=== PATIENT | female | born 1970 | race Caucasian/White ===

== ENCOUNTER 2019-12-20 00:37 | Outpatient (CLI) | payer OTHER, SELFPAY ==
[2019-12-20 18:11] LABS: SARS-CoV-2 RNA PCR Negative
== END 2019-12-20 00:38 | disposition home or self-care (01) ==
LOC: ANHCOVIDDT 00:37
PROVIDERS: Visit Provider Obstetrics & Gynecology Gynecology
DX: Z20.828 Contact with and (suspected) exposure to other viral communicable diseases (principal); Z01.812 Encounter for preprocedural laboratory examination
CPT/HCPCS: 87635; C9803; U0003

== ENCOUNTER 2019-12-20 09:18 | Outpatient (CLI) | payer OTHER, SELFPAY ==
--- NOTE | 2019-12-20 09:19 | ECG_ITS ---
Measurements Intervals [place] Rate: 55 P: 60 CT: 164 QRS: 64 QRSD: 97 T: 48 QT: 414 QTc: 397 Interpretive Statements SINUS BRADYCARDIA BASELINE ARTIFACT- I, II, III, AVR, AVL, AVF BORDERLINE ECG Electronically Signed On 12-20-2019 10:23:35 CDT by Nino Johnson D.O.
[2019-12-20 10:00] LABS: Blood Urea Nitrogen 23 mg/dL (7-17); Calcium 9.7 mg/dL (8.4-10.2); Carbon Dioxide 27 mmol/L (22-30); Chloride 102 mmol/L (98-107); Estimated Glomerular Filt Rate > 60; Glucose 111 mg/dL (65-105); Potassium 4.3 mmol/L (3.4-5.0); Sodium 135 mmol/L (137-145)
== END 2019-12-20 09:19 | disposition home or self-care (01) ==
LOC: ANHSURGERY 09:19
PROVIDERS: Anesthesiology; PCP Internal Medicine; Visit Provider Obstetrics & Gynecology Gynecology
DX: I10 Essential (primary) hypertension (principal); R94.31 Abnormal electrocardiogram [ECG] [EKG]
CPT/HCPCS: 36415; 80048; 87635; 93005; C9803; U0003

== ENCOUNTER 2019-12-22 03:18 | Day surgery (SDC) | payer OTHER, SELFPAY ==
[2019-12-18 17:10] VITALS: BMI 44.6
--- NOTE | ~2019-12-22 | XR_ITS ---
EXAMINATION: XR abdomen/kub 1V INDICATION: Lost partial IUD TECHNIQUE: Intraoperative supine views of the abdomen are obtained on four radiographs COMPARISON: None FINDINGS: Surgical instruments are noted in the pelvis. No additional radiopaque foreign body is iden tified. The bowel gas pattern is normal. IMPRESSION: 1. No partial IUD fragment visualized. Reviewed, dictated and finalized at location A.
[2019-12-22 08:11] VITALS: BP 141/83; PULSE 63; RESP 20; TEMP 36.6; O2SAT 98
[2019-12-22] MEDS: LACTATED RINGERS 1,000 ML 30 ML IV CONT (08:24)
--- NOTE | 2019-12-22 08:37 | WPDANESEPPF ---
Anes - Initial Pre Proc Eval Procedure: Operation Date: 12/22/19 09:30 Proposed Procedures p Hysteroscopy, Removal Of Intrauterine Device, Possible Laparoscopy - Bouchra Spencer MD Date/Time: 12/22/19 08:37 Surgeon: Bouchra Spencer MD Pre Op Diagnosis: Broken Intrauterine Device Patient Data Age: 49 Gender: F Height: 5 ft 6 in Weight: 121.3 kg Last Vital Signs Temp 36.6 C 12/22/19 08:11 Pulse 63 12/22/19 08:11 Resp 20 12/22/19 08:11 BP 141/83 H 12/22/19 08:11 Pulse Ox 98 12/22/19 08:11 Allergies Allergy/AdvReac Type Severity Reaction Status Date / Time hydrocodone [From Vicodin] Allergy Severe Swelling Verified 12/22/19 08:20 Home Medications Medication Instructions Recorded Confirmed Type hydrochlorothiazide 25 mg PO DAILY 12/18/19 12/22/19 History meloxicam 15 mg PO DAILY 12/18/19 12/22/19 History Patient hx anesthesia problems: post op nausea/vomiting Family hx anesthesia problems: none [facility] Past Medical History Medical History (Updated 12/22/19 @ 08:37 by Bulmaro Luz MD) Morbid obesity PRATEEK (obstructive sleep apnea) Anes - Eval Final PreProcedure Day of Procedure 12/22/19 08:37 Patient weight: morbidly obese Heart: regular rate and rhythm Lungs: clear to auscultation Airway: Mallampati scale class II Neurological: alert and oriented Last oral intake: >/= 8 hours ASA classification: III Emergent: no Anesthetic plan: proceed Anesthesia type and monitoring: general GIVS and standard monitoring Informed Consent: The patient's anesthetic plan and its attendant risks and benefits were discussed with the patient/family/POA. Questions were solicited and answers provided to the satisfaction of the patient/family/POA.
[2019-12-22] MEDS: SCOPOLAMINE 1.5 MG PATCH TRANSDERM (09:00)
--- NOTE | 2019-12-22 09:18 | PM.HPGS ---
History of Present Illness History of Present Illness Consent: Risks, benefits, and alternatives have been discussed and questions answered. Patient agrees to proceed with procedure. Chief complaint: Broken Intrauterine Device Narrative: Padmini Mccauley is a 49 year old female who had IUD removed in office. Only the vertical bar came out with the strings. The crossbar did not come out. U/s done and see 2 hypoechoic areas consistent with the ends of the crossbar. Discussed removal of remnant with hysteroscopy. Discussed that there is a rare chance this portion has perforated and XRay and laparoscopy may be needed. Risks of infection, bleeding, uterine perforation, injury to internal organs, and anesthesia reviewed. [facility] Past Medical History Medical History (Updated 12/22/19 @ 09:21 by Bouchra Spencer MD) delivery delivered Morbid obesity PRATEEK (obstructive sleep apnea) Surgical History Surgical History (Updated 12/22/19 @ 09:20 by Bouchra Spencer MD) H/O laparoscopy Meds Home Medications and Allergies Home Medications Medication Instructions Recorded Confirmed Type hydrochlorothiazide 25 mg PO DAILY 12/18/19 12/22/19 History meloxicam 15 mg PO DAILY 12/18/19 12/22/19 History Allergies Allergy/AdvReac Type Severity Reaction Status Date / Time hydrocodone [From Vicodin] Allergy Severe Swelling Verified 12/22/19 08:20 Vital Signs Vital Signs - 24 hr 12/22/19 08:11 Temperature 97.9 F Pulse Rate 63 Respiratory Rate 20 Blood Pressure 141/83 H Pulse Oximetry 98 Exam Const: General: healthy appearing and alert Orientation/consciousness: patient oriented x3 Resp: Effort & Inspection: normal respiratory effort Auscultation: clear to auscultation bilaterally Cardio: Rate: regular rate Rhythm: regular rhythm GI: GI Palp: Yes Soft to palpation, No Tenderness to palpation present (GI) and No Palpable mass present : External Female Exam: normal external appearance Speculum Exam - Vagina: normal appearance of the vagina and normal vaginal discharge Speculum Exam - Cervix: normal appearance of the cervix Bimanual exam- vagina & uterus: uterine size normal and consistency normal Bimanual Exam- Adnexa, other: normal adnexae and No adnexal tenderness Neuro: General: patient oriented x3 Assessment and Plan Assessment and plan (1) IUD complication: Code(s): T83.9XXA - Unspecified complication of genitourinary prosthetic device, implant and graft, initial encounter Status: Acute Assessment and Plan: plan hysteroscopic removal and if needed laparoscopic removal of IUD fragment
[2019-12-22] MEDS: KETOROLAC 30 MG/ML VIAL (*BKC) IV PUSH (09:45)
--- NOTE | 2019-12-22 10:18 | PM.OP ---
Procedure Note - Brief Procedure Note - Brief Date of procedure: 12/22/19 Pre-op diagnosis: Broken Intrauterine Device Post-op diagnosis: same Procedure performed: hysteroscopy; intraoperative KUB Anesthesia: MAC and local Surgeon: Bouchra Spencer MD Estimated blood loss (mL): 5 Drains: No Packing: No Pathology: none sent Complications: No immediate complications Condition: stable Disposition: PACU Findings: uterus 8 cm; grossly normal without evidence of IUD crossbar; KUB x 4 views without evidence of IUD crossbar in pelvis or abdomen
[2019-12-22 10:22] VITALS: BP 121/61; PULSE 64; RESP 18; O2SAT 100
[2019-12-22 10:45] VITALS: BP 124/64; PULSE 55; RESP 20
[2019-12-22 11:00] VITALS: BP 130/62; PULSE 60; RESP 18
[2019-12-22 11:20] VITALS: BP 139/76; PULSE 52; RESP 18
--- NOTE | 2019-12-23 02:58 | OP_ITS ---
DATE OF PROCEDURE: 12/22/2019 PREOPERATIVE DIAGNOSIS: Missing IUD fragment. POSTOPERATIVE DIAGNOSIS: Missing IUD fragment. PROCEDURE: Diagnostic hysteroscopy, intraoperative x-rays. ESTIMATED BLOOD LOSS: 5 cc. PATHOLOGY: None. PROCEDURE: The patient was taken to the operating room, placed under MAC anesthesia in the dorsal lithotomy position. She was prepped and draped in usual sterile fashion in the dorsal lithotomy position. Bivalved speculum was placed in the vagina. Cervix was grasped on the anterior lip with a tenaculum and injected with 1% lidocaine. The uterus was sounded to 8 cm. The cervix was serially dilated with Hegars. The diagnostic hysteroscope was placed. No IUD fragment is noted. The hysteroscope was removed. The x-ray was called for. The acorn manipulator was placed. The speculum was removed. The bladder was drained with a red rubber catheter. Piercing towel clamp was placed at the base of the umbilicus with the handle pointing to the pelvis. The patient was repositioned so x-rays could be taken, 4 x-rays taken of the pelvis and abdomen, lower lung cavities were performed. I did not see a fragment of the IUD within the abdominal or pelvic cavity. Intraoperative reading by the radiologist confirms no fragments seen of the IUD. All instruments were removed. The patient was taken down from lithotomy position, and taken to Recovery in stable condition. Mayda [facility]
== END 2019-12-22 11:36 | disposition home or self-care (01) ==
PROVIDERS: PCP Internal Medicine; Visit Provider Obstetrics & Gynecology Gynecology
PROC: 0UDB8ZZ Extraction of Endometrium, Via Natural or Artificial Opening Endoscopic (ICD-10-PCS; CPT 58558; principal; 2019-12-22 09:30)
DX: T83.31XA Breakdown (mechanical) of intrauterine contraceptive device, initial encounter (principal); Y84.8 Other medical procedures as the cause of abnormal reaction of the patient, or of later complication, without mention of misadventure at the time of the procedure; G47.33 Obstructive sleep apnea (adult) (pediatric); E66.01 Morbid (severe) obesity due to excess calories; Z68.41 Body mass index [BMI] 40.0-44.9, adult
CPT/HCPCS: 58555; 74018; A9270; J1885; J2250; J2405; J2704; J3010; J7030; J7120